=== PATIENT | female | born 1985 | race Caucasian/White ===

== ENCOUNTER → 2018-06-28 16:31 | Outpatient (CLI) | payer BC, SELFPAY ==
[2018-07-03 13:27] LABS: HPV APTIMA, High Risk Negative (Negative)
== END ==
PROVIDERS: Referring Provider Nurse Practitioner Women's Health; Visit Provider Nurse Practitioner Women's Health
DX: Z12.4 Encounter for screening for malignant neoplasm of cervix (principal)
CPT/HCPCS: 87624; 88175; G0145

== ENCOUNTER → 2019-07-05 11:27 | Outpatient (CLI) | payer OTHER, SELFPAY ==
[2019-07-01 10:06] VITALS: BMI 31.3
--- NOTE | 2019-07-05 11:31 | US_ITS ---
STUDY: THYROID ULTRASOUND REASON FOR EXAM: Female, 34 years old. Screening for thyroid disorder. Left cervical nodule. TECHNIQUE: Ultrasound evaluation of the thyroid was performed with real-time and static smith-scale imaging. COMPARISON: None. FINDINGS: RIGHT LOBE: The right lobe of the thyroid gland measures 4.5 cm x 1.6 x 1.7 cm. There is a homogeneous echotexture. There are no demonstrated solid, cystic or complex lesions. LEFT LOBE: The left lobe of the thyroid gland measures 4.1 cm x 1.4 cm x 1.1 cm. There is a homogeneous echotexture. There are no demonstrated solid, cystic or complex lesions. ISTHMUS: The isthmus measures 2.0 mm. Incidental note is made of a 9 mm x 9 mm x 4 mm benign appearing lymph node. US/Thyroid IMPRESSION: Normal ultrasound examination of the thyroid. 9 mm x 9 mm x 4 mm benign-appearing left cervical lymph Electronically Signed: Bong Pearson, at 13:39 EST , Service support ,
== END ==
PROVIDERS: Family Provider Internal Medicine; PCP Internal Medicine; Referring Provider Obstetrics & Gynecology; Visit Provider Obstetrics & Gynecology
DX: Z13.29 Encounter for screening for other suspected endocrine disorder (principal)
CPT/HCPCS: 76536

== ENCOUNTER 2019-09-09 17:36 | Emergency (ER) | payer OTHER, SELFPAY ==
[2019-07-01 10:06] VITALS: BMI 31.3
[2019-09-09 17:36] VITALS: BP 151/94; PULSE 86; RESP 16; TEMP 37; O2SAT 100; BMI 32.2
--- NOTE | 2019-09-09 19:06 | CT_ITS ---
HISTORY: PARESTHESIAS, TREMORS X YEARS, N/V, METALLIC TASTE IN MOUTH X 4 DAYS TECHNIQUE: Multiple axial images were obtained of the brain without intravenous contrast. A radiation dose optimization technique was used for this scan. COMPARISON: None FINDINGS: # of images incl. paperwork: 241 Visualized portions of the paranasal sinuses and mastoid air cells are free of disease. Brain volume is normal. Vázquez-white differentiation is preserved. No hydrocephalus. No acute ischemia. No acute intracranial hemorrhage. CT/Brain/Head without Contrast IMPRESSION: Normal. ASPECT 10. Individualized dose optimization techniques were used for this CT. at 2009 Reported and signed by: Neal Lee MD Electronically Signed: Neal Lee MD at 20:08 EST Tel , Service support ,
[2019-09-09] MEDS: 0.9% Normal Saline 1,000 ML 1000 ML IV (19:50)
[2019-09-09 19:51] LABS: Absolute Lymphocyte Count 2.12 X10^3/uL (0.83-4.51); Basophil# 0.11 X10^3/uL; Basophil% 1.1 % (0-1); Hematocrit 40.8 % (37-47); Hemoglobin 13.5 g/dL (12.0-15.0); Lymphocyte # 2.12 X10^3/ul (4.0); Lymphocyte % 21.1 % (19-41); Mean Corp Hgb Conc 33.1 g/dL (32-36); Mean Corpuscular Volume 87.7 fL (81-99); Mean Platelet Vol. 9.5 fl (6.2-12.0); Monocyte# 0.64 X10^3/uL; Monocyte% 6.4 % (0-10); NRBC Flagged by Analyzer 0 % (0-5); Neutrophil # 6.96 X10^3/uL (2.7-7.7); Neutrophil % 69.1 % (47-70); Platelet Count 306 K/mm3 (150-450); RBC Distribution Width CV 12.6 % (11.6-14.6); RBC Distribution Width SD 40.6 fl (35.1-43.9); Red Blood Count 4.65 M/mm3 (4.2-5.4); White Blood Count 10.1 K/mm3 (4.4-11.0)
[2019-09-09 20:04] LABS: Bacteria 0 SEEN /hpf (None Seen); Mucous, Urine 0 SEEN /hpf (<or=2+); Red Blood Cells-Urine 0 SEEN /hpf (0-5); White Blood Cells 0 SEEN /hpf (0-5)
[2019-09-09 20:07] LABS: Color, Urine Yellow (Yellow); Glucose, Dipstick Normal (Normal); Ketone-Dipstick Negative (Negative); Leukocyte Esterase-Dipstick Negative /ul (Negative); Nitrite-Dipstick Negative (Negative); Occult Blood-Urine 150 /ul (Negative); Protein-Dipstick Negative (Negative); Urine Bilirubin Dipstick Negative (Negative); Urine Clarity Clear (Clear); Urine Urobilinogen Normal (Normal)
[2019-09-09 20:14] LABS: Squamous Epithelial Cells - UA 0-5 SEEN /hpf (5-10)
[2019-09-09 20:15] LABS: Internal QC Validated? YES +Cl - CLEAR BKGD; Pregnancy, Urine Negative Negative
[2019-09-09 20:16] LABS: ALB/GLOB Ratio 1.2 RATIO (0.9-2.4); AST(SGOT) 17 U/L (15-37); Alanine Aminotransfer ALT/SGPT 25 U/L (13-56); Albumin, Serum 4.2 g/dL (3.2-5.0); Alkaline Phosphatase 84 U/L (45-117); Anion Gap 5 (5-15); BUN 11 mg/dL (7-18); BUN/Creat Ratio 12.5 RATIO (10-20); Calcium,Total 9.3 mg/dL (8.5-10.1); Chloride 109 mmol/L (98-107); Creatinine, Serum 0.88 mg/dL (0.55-1.02); EST Glomerular Filtration Rate 78 mL/min (>60); Est Glom Filt Rate - Afr Amer 95 mL/min (>60); Estimated Creatinine Clearance 78.52 ml/min; Globulin 3.6 g/dL (2.2-4.2); Glucose 95 mg/dL (74-106); Lipase 102 U/L (73-393); Potassium 3.9 mmol/L (3.5-5.1); Protein, Total 7.8 g/dL (6.4-8.2); Sodium Level 141 mmol/L (136-145)
[2019-09-09 21:26] LABS: CPK Total, Creatine Kinase 134 U/L (26-192)
[2019-09-09] MEDS: Ibuprofen 600 MG Tablet PO (22:57)
--- NOTE | 2019-09-09 23:16 | ED.DCSUM_ITS ---
History of Present Illness Chief Complaint: General Illness Informant: Patient Narrative: Patient is a 34-year-old female with history of neck injury from sports presenting with tremor and a metallic taste in her mouth as well as nausea and vomiting. Patient states she has had a tremor for the past 5 years off and on. It is been more constant for the past 3 weeks. She describes it as a vibration sensation that she feels throughout her body. She does not actually have shaking of her hands or extremities. For the past 4 days she has had associated nausea and no vomiting today. She states she threw up once and states it was foaming. She also had some mild left upper quadrant pain today. It does not radiate and is constant. She states it feels like a bubble or pressure sensation. Patient also notes that she has had a metallic/soapy taste in her mouth. She is worried that it could be from her metal fillings. She is not sure if it could be mercury poisoning. She has been more thirsty and has had dry mouth. She also feels that her face is slightly swollen and red. Finally she notes that she is had an increase in her sense of smell. Patient saw her PCP today who was concerned about what was going on and felt that she needed a head CT so she sent her to the emergency room. Did not receive a call from the primary care doctor. Patient states she is had normal bowel movements. She has no urinary symptoms. Her last menstrual period was 2 days ago. She does not th ink she is . She denies any fever or chills. She was recently in [place] for a hunting expo. She denies any new foods or any new supplements. She denies any other complaints at this time. Past Medical History - Allergies and Home Meds Allergies/Adverse Reactions: Allergies No Known Allergies Allergy (Verified 09/09/19 17:38) Primary Care Physician: Care Physician,No Primary [Primary Care Provider] - Surgical History: - - Cystectomy, Lives: Spouse/ Significant Other, With Family Smoking Status: Former smoker Alcohol: Occasional Drugs: None Review of Systems General: Reports: Malaise. Denies: Chills, Fever, Sweats Eyes: Denies: Visual changes - bilaterally, Diplopia ENT: Denies: Rhinorrhea, Sore throat Cardiovascular: Denies: Chest pain, Palpitations Respiratory: Denies: Dyspnea, Cough, Dyspnea on exertion Gastrointestinal: Reports: Abdominal pain, Nausea, Vomiting - x 1. Denies: Diarrhea, Melena, Hematochezia Genitourinary: Denies: Dysuria, Hematuria, Frequency Musculoskeletal: Denies: Back pain, Extremity Pain Skin: Denies: Rash, Wounds Neurological: Reports: Parasthesia - Diffuse. Denies: Headache, Weakness, Numbness Psych: Reports: Anxiety Physical Exam Inital Vital Signs reviewed: Yes General: Well nourished, Well developed, No Acute Distress Head: Normocephalic, Atraumatic Eyes: Perrl, EOMI ENT: Moist mucous membranes, No rhinorrhea, TM's clear, - - No signs of dental abscess or dental infection. No cracked or missing teeth. Fillings appear to be normal in place. No deviation of the uvula. Sublingual mucosa is soft. Neck: Supple, Nontender, No lymphadenopathy, - - No Nuchal rigidity Cardiovascular: Regular rate, Regular rhythm, No murmurs Respiratory: No distress, CTA bilaterally, Chest nontender Abdomen: Soft, Nontender, Nondistended, Normal bowel sounds. Negative for: Guarding, Rebound tenderness, Conner's sign Back: Nontender, Normal Inspection Extremities: Nontender, No edema Skin: Normal color, No rash Neurological: Alert, Oriented x3, Cranial nerves II-XII grossly intact, Normal Strength, Normal Sensation, - - No tremor noted, normal coordination with [id number] and ambulation Psychological: Normal affect, Normal Mood, Tearful, - Diagnostic/Tx/Re-eval Clinical Impression(s) from Imaging Studies Brain CT 09/09/19 19:06 IMPRESSION: Normal. ASPECT 10. Individualized dose optimization techniques were used for this CT. at 2009 Reported and signed by: Neal Lee MD Electronically Signed: Neal Lee MD at 20:08 EST Tel , Service support , Laboratory Data 09/09/19 09/09/19 09/09/19 17:45 17:45 19:40 WBC 10.1 RBC 4.65 Hgb 13.5 Hct 40.8 MCV 87.7 MCH 29.0 MCHC 33.1 RDW Std Deviation 40.6 RDW Coeff of Farzad 12.6 Plt Count 306 MPV 9.5 Immature Gran % (Auto) 0.300 Neut % (Auto) 69.1 Lymph % (Auto) 21.1 [place] % (Auto) 6.4 Eos % (Auto) 2.0 Baso % (Auto) 1.1 H Absolute Neuts (auto) 7.0 Absolute Lymphs (auto) 2.12 Nucleated RBC % 0 Sodium Potassium Chloride Carbon Dioxide Anion Gap BUN Creatinine Estim Creat Clear Calc Est GFR (MDRD) Af Amer Est GFR (MDRD) Non-Af BUN/Creatinine Ratio Glucose Calcium Total Bilirubin AST ALT Alkaline Phosphatase Total Creatine Kinase Total Protein Albumin Globulin Albumin/Globulin Ratio Lipase Urine Color Yellow Urine Clarity Clear Urine pH 6.0 Ur Specific [place] 1.010 Urine Protein Negative Urine Glucose (UA) Normal Urine Ketones Negative Urine Occult Blood 150 H Urine Nitrite Negative Urine Bilirubin Negative Urine Urobilinogen Normal Ur Leukocyte Esterase Negative Urine RBC 0 SEEN Urine WBC 0 SEEN Ur Squamous Epith Cells 0-5 SEEN Urine Bacteria 0 SEEN Urine Mucus 0 SEEN Urine Test Negative 09/09/19 09/09/19 19:40 19:40 WBC RBC Hgb Hct MCV MCH MCHC RDW Std Deviation RDW Coeff of Farzad Plt Count MPV Immature Gran % (Auto) Neut % (Auto) Lymph % (Auto) [place] % (Auto) Eos % (Auto) Baso % (Auto) Absolute Neuts (auto) Absolute Lymphs (auto) Nucleated RBC % Sodium 141 Potassium 3.9 Chloride 109 H Carbon Dioxide 27.0 Anion Gap 5 BUN 11 Creatinine 0.88 Estim Creat Clear Calc 78.52 Est GFR (MDRD) Af Amer 95 Est GFR (MDRD) Non-Af 78 BUN/Creatinine Ratio 12.5 Glucose 95 Calcium 9.3 Total Bilirubin 0.30 AST 17 ALT 25 Alkaline Phosphatase 84 Total Creatine Kinase 134 Total Protein 7.8 Albumin 4.2 Globulin 3.6 Albumin/Globulin Ratio 1.2 Lipase 102 Urine Color Urine Clarity Urine pH Ur Specific [place] Urine Protein Urine Glucose (UA) Urine Ketones Urine Occult Blood Urine Nitrite Urine Bilirubin Urine Urobilinogen Ur Leukocyte Esterase Urine RBC Urine WBC Ur Squamous Epith Cells Urine Bacteria Urine Mucus Urine Test - Medical Decision Making Patient is evaluated for constellation of symptoms including paresthesias, increase in smell and odd taste in her mouth. Addition she had episode of vomiting today. She is a normal neurologic exam. She does not actually have tremors on her exam. She does not have any signs of dental abscess, edema of the face or plethora. A CT of the brain is obtained which does not show any obvious mass or other acute intracranial pathology. Her abdomen is soft and nontender. I did check labs including a CBC, CMP and lipase. These were all normal. Her urine did show 150 blood but no red blood cells. Patient just stopped her period 2 days ago. I did add on a CPK because of the elevated dip for blood. This was normal. She not have any findings with a urinary tract infection. 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 She not seem to think that this could be the cause. She does have follow-up appointment with her dentist later this week. She will continue to follow-up with her primary care doctor. She is counseled on signs and symptoms require return the emergency room. She is counseled that while the cause of her symptoms is not clear she is safe for outpatient follow-up at this time. Patient has normal vital signs. She is hemodynamically stable throughout her course in the ER. She is able to eat and drink without any difficulty. Patient declined Zofran even that was ordered for her. She is given a liter fluid in the emergency room. Patient is counseled on signs and symptoms requiring return to the emergency room. Patient verbalizes agreement and understand this plan. Patient discharged home in stable and improved condition. ED Disposition - Plan for ED Patient: Disposition: Home or Assisted Living Diagnosis: Paresthesias, Bad taste in mouth Referrals: Care Physician,No Primary [Primary Care Provider] - Additional Instructions: The exact cause of your constellation of symptoms is not clear. Your brain CT was normal. Your lab work including a CBC, CPK, urinalysis, CMP and lipase were all normal. Your urine did show possible blood in it but no signs of infection. Your kidneys were normal today. Please follow-up with your primary care doctor for further evaluation of your symptoms. You may try taking [id number] antacids to see if this helps. Please also follow-up with a dentist as scheduled.
[2019-09-09 23:45] VITALS: BP 117/81; PULSE 80; RESP 16; O2SAT 98
== END 2019-09-09 23:45 | disposition home or self-care (01) ==
PROVIDERS: Emergency Provider Emergency Medicine
DX: R20.2 Paresthesia of skin (principal); R25.1 Tremor, unspecified; R11.2 Nausea with vomiting, unspecified; R10.12 Left upper quadrant pain; Z87.891 Personal history of nicotine dependence
CPT/HCPCS: 70450; 80053; 81001; 81025; 82550; 83690; 85025; 96361; 96374; 99285; J7030; J2405